=== PATIENT | female | born 1935 | race African-American/Black ===

== ENCOUNTER 2020-10-01 16:36 | Emergency (ER) | payer OTHER ==
[~2020-10-01] VITALS: Ht 165.1 cm; Wt 90.7 kg
[2020-10-01 17:06] LABS: BASOPHILS % 0.5 % (0.0-2.0); EOSINOPHILS % 0.3 % (0.0-5.0); HEMATOCRIT. 40.2 % (36.0-48.0); HEMOGLOBIN. 13.1 g/dL (12.0-16.0); LYMPHOCYTES % 13.3 % (20.0-50.0); MEAN CORPUSCULAR HEMOGLOBIN 29.1 pg (28.0-32.0); MEAN CORPUSCULAR VOLUME 89.1 fL (81.0-99.0); MEAN PLATELET VOLUME 8.2 fl (7.4-10.4); MONOCYTES % 3.8 % (2.0-8.0); NEUTROPHILS % 82.1 % (40.0-76.0); PLATELET 198 x1000/uL (130-400); RED BLOOD CELL COUNT 4.52 mill/uL (4.2-5.4); RED CELL DISTRIBUTION WIDTH 15.1 % (11.6-14.6)
[2020-10-01 17:16] LABS: CHLORIDE 97 mEq/L (98-107)
[2020-10-01] MEDS ORDERED: ASPIRIN 81MG TABLET PO SCH (20:30)
[2020-10-01] MEDS ORDERED: IOHEXOL-350 100 ML BOTTLE ONE (20:44)
[2020-10-01] MEDS ORDERED: HYDRALAZINE 20MG/ML VIAL IV ONE (21:45)
[2020-10-01 22:22] VITALS: BP 177/71
== END 2020-10-01 22:34 | disposition short-term general hospital (02) ==
LOC: ER 16:36 → CANBEDREQ 18:26 → ER 22:34
DX: I63.9 Cerebral infarction, unspecified (principal); I10 Essential (primary) hypertension; E11.9 Type 2 diabetes mellitus without complications
CPT/HCPCS: 36415; 70496; 80053; 82962; 84484; 85025; 93005; 96374; 99285; J0360; Q9967